=== PATIENT | female | born 1990 | race Caucasian/White ===

== ENCOUNTER 2019-10-29 22:20 | Emergency (ER) | payer SELFPAY ==
--- NOTE | 2019-10-29 23:02 | EDM.PDOC ---
ED HPI GENERAL MEDICAL PROBLEM - General Chief Complaint: [employer] Problem Stated Complaint: TROUBLE KEEPING FLUIDS DOWN Time Seen by Provider: 10/29/19 22:53 Source of Information: Reports: Patient History Limitations: Reports: No Limitations - History of Present Illness INITIAL COMMENTS - FREE TEXT/NARRATIVE: Patient presents from home because of persistent nausea and vomiting in the context of an approximately 8 week first time . She has been using doxylamine and appeared same with no improvement in nausea and vomiting. A lot of food seems to upset her stomach and eating is irregular because of her persistent nausea. She feels as though she is dehydrated today. She has had lots of information directed her way by friends and other resources and she is uncertain about what to worry about or not. She has an ultrasound appointment and first OB visit coming up in the near future. Onset: Gradual Location: Reports: Abdomen Severity: Moderate Improves with: Reports: None Worsens with: Reports: Eating Associated Symptoms: Reports: No Other Symptoms - Related Data Allergies Allergy/AdvReac Type Severity Reaction Status Date / Time levofloxacin [From Levaquin] AdvReac Vomiting Verified 10/29/19 22:37 Home Meds: Home Meds DULoxetine [Cymbalta] 30 mg PO DAILY 10/29/19 [History] Doxylamine/Pyridoxine HCl [Diclegis Dr 10-10 mg Tablet] 1 each PO BID PRN [History] Past Medical History - Past Health History Medical/Surgical History: Denies Medical/Surgical History [employer]ANCE IN[employer]CTOR History: Reports: Other [employer]IN [employer]ANCE IN[employer]CTOR History: Social & Family History - Tobacco Use Smoking Status *Q: Never Smoker - Caffeine Use Caffeine Use: Reports: Coffee - Recreational Drug Use Recreational Drug Use: No ED ROS GENERAL - Review of Systems Review Of Systems: See Below Respiratory: Reports: No Symptoms Cardiovascular: Reports: No Symptoms GI/Abdominal: Reports: Nausea, Vomiting. Denies: Abdominal Pain : Denies: Incontinence, Irregular Menses ED EXAM - Physical Exam Exam: See Below Text/Narrative:: This is an adult female seated on the bed in room 6 in no obvious distress. Exam Limited By: No Limitations General Appearance: Alert, No Apparent Distress Respiratory/Chest: Lungs Clear Cardiovascular: Regular Rate, Rhythm GI/Abdominal Exam: Normal Bowel Sounds, Soft, Non-Tender Course - Vital Signs Last Recorded V/S: Last Vital Signs Temp 36.2 C 10/29/19 22:35 Pulse 65 10/29/19 22:35 Resp 16 10/29/19 22:35 BP 104/65 10/29/19 22:35 Pulse Ox 99 10/29/19 22:35 - Orders/Labs/Meds Orders: Active Orders 24 hr Category Date Time Status Saline Lock Insert [OM.PC] Routine Oth 10/29/19 23:08 Ordered Labs: Laboratory Tests 10/29/19 10/29/19 Range/Units 23:20 23:20 WBC 9.3 (4.5-11.0) K/uL RBC 4.00 (3.30-5.50) M/uL Hgb 12.8 (12.0-15.0) g/dL Hct 37.5 (36.0-48.0) % MCV 94 (80-98) fL MCH 32 H (27-31) pg MCHC 34 (32-36) % Plt Count 240 (150-400) K/uL Neut % (Auto) 66 (36-66) % Lymph % (Auto) 24 (24-44) % [place] % (Auto) 10 H (2-6) % Eos % (Auto) 0 L (2-4) % Baso % (Auto) 0 (0-1) % Sodium 135 L (140-148) mmol/L Potassium 3.8 (3.6-5.2) mmol/L Chloride 100 (100-108) mmol/L Carbon Dioxide 26 (21-32) mmol/L Anion Gap 12.8 (5.0-14.0) mmol/L BUN 9 (7-18) mg/dL Creatinine 0.5 L (0.6-1.0) mg/dL Est Cr Clr Drug Dosing 123.02 mL/min Estimated GFR (MDRD) > 60 (>60) Glucose 100 (74-106) mg/dL Calcium 8.8 (8.5-10.1) mg/dL Meds: Medications Discontinued Medications Generic Name Dose Route Start Last Admin Trade Name Freq PRN Reason Stop Dose Admin Sodium Chloride 1,000 mls @ 999 mls/hr 10/29/19 23:08 10/29/19 23:26 Normal Saline IV 10/30/19 00:08 999 mls/hr .BOLUS ONE Administration Ondansetron HCl 4 mg 10/29/19 23:09 10/29/19 23:26 Zofran IVPUSH 10/29/19 23:10 4 mg ONETIME ONE Administration Sodium Chloride 10 ml 10/29/19 23:08 10/29/19 23:27 Saline Flush FLUSH 10 ml ASDIRECTED PRN Administration Keep Vein Open - Re-Assessments/Exams Free Text/Narrative Re-Assessment/Exam: 10/29/19 23:13 Patient will be given 1 L of normal saline by rapid infusion along with ondansetron 4 mg IV. We will look at metabolic profile tonight as well. 10/30/19 04:38 I returned later to review test results and symptoms. She feels significantly better after fluid hydration and her nausea is gone. At this time, antiemetics will not be prescribed. She prefers to discuss this with her OB provider. I recommend grazing behavior, that is small amounts frequently of food and liquid to sit with her stomach better. Also recommend bedside crackers to take before she gets out of bed in the morning and as needed. Reasons to return to emergency department reviewed. Departure - Departure Time of Disposition: 00:47 Disposition: Home, Self-Care 01 Clinical Impression: Nausea and vomiting during Qualifiers: Weeks of gestation: less than 8 weeks Qualified Code(s): Z3A.01 - Less than 8 weeks gestation of - Discharge Information *PRESCRIPTION DRUG MONITORING PROGRAM REVIEWED*: Not Applicable *COPY OF PRESCRIPTION DRUG MONITORING REPORT IN PATIENT RAJAN: Not Applicable Instructions: Eating Plan for Women, Morning Sickness, First Trimester of Referrals: PCP,None [Primary Care Provider] - Forms: ED Department Discharge Additional Instructions: Consider grazing behavior as we discussed. Try eating some crackers every morning before getting out of bed. Contact your team this week with further questions and keep your scheduled appointments. Return to ER if feeling worse in anyway. Sepsis Event Note - Evaluation Sepsis Screening Result: No Definite Risk - Focused Exam Vital Signs: Vital Signs Temp Pulse Resp BP Pulse Ox 10/29/19 22:35 36.2 C 65 16 104/65 99 Date Exam was Performed: 10/30/19 Time Exam was Performed: 04:38 - My Orders Last 24 Hours: My Active Orders 10/29/19 23:08 Saline Lock Insert [OM.PC] Routine - Assessment/Plan Last 24 Hours: My Active Orders 10/29/19 23:08 Saline Lock Insert [OM.PC] Routine
[2019-10-29] MEDS ORDERED: Sodium Chloride 0.9% 10 ML Syringe FLUSH PRN (23:08)
[2019-10-29] MEDS ORDERED: Sodium Chloride 0.9% 1,000 ML IV ONE (23:08)
[2019-10-29] MEDS ORDERED: Ondansetron 4 MG/2 ML SDV IVPUSH ONE (23:09)
== END 2019-10-30 01:00 | disposition home or self-care (01) ==
LOC: JP.ED 22:20
DX: O21.9 Vomiting of pregnancy, unspecified (principal); Z3A.08 8 weeks gestation of pregnancy; Z88.1 Allergy status to other antibiotic agents; Z79.899 Other long term (current) drug therapy
CPT/HCPCS: 36415; 80048; 85025; 96361; 96374; 99284; J2405; J7030